=== PATIENT | female | born 1970 | race Two or more races ===

== ENCOUNTER → 2021-02-02 | Outpatient (CLI) | payer OTHER ==
[~2021-02-02] MED LIST: CHOL10003 PO; ESTR1PAT TP; FLAX10004 PO; HYDR50TA99 PO; OMEG1CAP6 PO; [UNRECOGNIZED DRUG - OTHER]; [UNRECOGNIZED DRUG - OTHER] PO
[2021-02-02 10:55] LABS: MICROSCOPIC NOT IND
[2021-02-02 10:56] LABS: BASOPHILS % (AUTO) 2 % (0-1); EOSINOPHILS % (AUTO) 3 % (1-7); LYMPHOCYTES % (AUTO) 31 % (22-44); MEAN CORPUSCULAR HEMOGLOBIN 28.4 pg (27.0-34.8); MEAN CORPUSCULAR HGB CONC 33.9 g/dL (32.4-35.8); MEAN PLATELET VOLUME 7.3 fL (7.4-10.4); MONOCYTES % (AUTO) 5 % (2-9); NEUTROPHILS % (AUTO) 60 % (42-75); PLATELET COUNT 477 x10^3/uL (130-400); RED BLOOD COUNT 5.39 x10^6/uL (3.82-5.3); RED CELL DISTRIBUTION WIDTH 13.4 % (9.6-15.2)
[2021-02-02 11:01] LABS: MD NO
[2021-02-02 11:06] LABS: ALANINE AMINOTRANSFERASE 37 U/L (12-78); ALBUMIN 4.2 g/dL (3.4-5.0); ANION GAP 4 mmol/L (5-15); CHLORIDE 107 mmol/L (98-107); CREATININE 0.61 mg/dL (0.55-1.02)
[2021-02-02 11:10] LABS: ALKALINE PHOSPHATASE 90 U/L (45-117); BILIRUBIN,TOTAL 0.6 mg/dL (0.2-1.0); TOTAL PROTEIN 8.2 g/dL (6.4-8.2)
== END | disposition home or self-care (01) ==
LOC: EDBD 09:49 → STAR 09:49
PROVIDERS: ATTEND Obstetrics & Gynecology Gynecology
DX: Z01.812 Encounter for preprocedural laboratory examination (principal); Z20.822 Contact with and (suspected) exposure to COVID-19; D39.12 Neoplasm of uncertain behavior of left ovary
CPT/HCPCS: 36415; 71046; 80053; 81003; 84703; 85025; 93005; U0003; U0005

== ENCOUNTER 2021-02-06 05:46 | Day surgery (SDC) | payer OTHER ==
[2021-02-02 10:22] VITALS: BP 145/75
[~2021-02-06] VITALS: Ht 162.6 cm; Wt 78.0 kg
[2021-02-06] MEDS ORDERED: CHLORHEXIDINE 15 ML UDC PO ONE (06:30)
[2021-02-06] MEDS ORDERED: CHLORHEXIDINE 15 ML UDC ONE (06:40)
[2021-02-06 06:48] LABS: HCG UR SG 1.017 (1.003-1.030)
[2021-02-06] MEDS ORDERED: FENTANYL PF 250 MCG/5ML ONE (06:53)
[2021-02-06] MEDS ORDERED: MIDAZOLAM 1 MG/ML, 2ML ONE (06:53)
[2021-02-06] MEDS ORDERED: ONDANSETRON 2MG/ML, 2ML ONE (06:55)
[2021-02-06] MEDS ORDERED: PROPOFOL 10 MG/ML, 20ML ONE (06:55)
[2021-02-06] MEDS ORDERED: LIDOCAINE-MPF 2% ,5ML ONE (06:55)
[2021-02-06] MEDS ORDERED: ROCURONIUM 10MG/ML,5ML ONE (06:55)
[2021-02-06] MEDS ORDERED: CEFAZOLIN 1,000 MG ONE ×2 (06:56)
[2021-02-06] MEDS ORDERED: DEXAMETHASONE 4 MG/ML, 5ML ONE (06:56)
[2021-02-06] MEDS ORDERED: SILVER NITRATE STICK TP ONE (07:08)
[2021-02-06] MEDS ORDERED: LIDOCAINE/MPF 2%-EPI 1:200K, 20 ML ONE (07:08)
[2021-02-06] MEDS: LACTATED RINGERS 1,000 ML IV SCH ×2 (07:24→09:49)
[2021-02-06] MEDS ORDERED: FENTANYL PF 100 MCG/2ML IV PRN (07:30)
[2021-02-06] MEDS ORDERED: HYDROmorphone 1 MG/ML, 1ML INJ IVPush PRN (07:30)
[2021-02-06] MEDS ORDERED: PROMETHAZINE 25 MG/ML, 1ML IVPush PRN (07:30)
[2021-02-06] MEDS ORDERED: OXYcodone 5 MG/5 ML ORAL.SOL UDC PO PRN (07:30)
[2021-02-06] MEDS ORDERED: ACETAMINOPHEN 325 MG TABLET PO PRN (07:30)
[2021-02-06] MEDS ORDERED: hydrALAzine 20 MG/ML, 1ML IV PRN (07:30)
[2021-02-06] MEDS ORDERED: DIPHENHYDRAMINE 50 MG/ML, 1ML IVPush PRN (07:30)
[2021-02-06] MEDS ORDERED: DIAZEPAM 5 MG/ML, 2ML IVPush PRN (07:30)
[2021-02-06] MEDS ORDERED: ONDANSETRON 2MG/ML, 2ML IVPush PRN (07:30)
[2021-02-06] MEDS ORDERED: LABETALOL 5MG/ML, 20ML IV PRN (07:30)
[2021-02-06] MEDS ORDERED: MEPERIDINE/PF 25MG/0.5ML IVPush PRN (07:30)
[2021-02-06] MEDS ORDERED: NEOSTIGMINE 1 MG/ML, 10ML ONE (08:16)
[2021-02-06] MEDS ORDERED: GLYCOPYRROLATE 0.2MG/1ML, 5ML ONE (08:16)
[2021-02-06] MEDS ORDERED: MEPERIDINE/PF 25MG/ML,1ML ONE (08:45)
[2021-02-06] MEDS ORDERED: FENTANYL PF 100 MCG/2ML ONE (08:52)
[2021-02-06] MEDS ORDERED: ACETAMINOPHEN 650 MG/20.3 ML UDC ONE (08:52)
[2021-02-06] MEDS ORDERED: OXYcodone 5 MG/5 ML ORAL.SOL UDC ONE (08:52)
== END 2021-02-06 11:30 | disposition home or self-care (01) ==
LOC: EDBD → OUT 05:46
PROVIDERS: ATTEND Obstetrics & Gynecology Gynecology
DX: N83.8 Other noninflammatory disorders of ovary, fallopian tube and broad ligament (principal); N73.6 Female pelvic peritoneal adhesions (postinfective); Z79.899 Other long term (current) drug therapy
CPT/HCPCS: 58661; 81025; 88112; 88305; 88307; J1100; J2250; J2405; J2704; J2710; J3010; J7120; J0690